=== PATIENT | male | born 1990 | race Caucasian/White ===

== ENCOUNTER 2024-03-27 14:19 | Outpatient (CLI) | payer OTHER | END 2024-03-27 14:20 | disposition home or self-care (01) | LOC: SCSMRI 14:19 | PROVIDERS: ATTEND Nurse Practitioner Family | DX: G44.52 New daily persistent headache (NDPH) (principal); J34.9 Unspecified disorder of nose and nasal sinuses; G93.6 Cerebral edema; Z92.89 Personal history of other medical treatment | CPT/HCPCS: 70553 ==